=== PATIENT | male | born 1950 | race American Indian/Alaskan Native ===

== ENCOUNTER 2017-11-14 08:54 | Emergency (ER) | payer MEDICARE ==
--- NOTE | 2017-11-14 10:17 | XRay Report ---
RIGHT ELBOW, 3 views: HISTORY: right elbow pain. Normal bone mineralization. No evidence for acute fracture or bone lesion. Mild osteoarthritic changes are identified. There is moderate to severe posterior soft tissue swelling. A moderate to large olecranon spur is also identified. IMPRESSION: Posterior soft tissue swelling. Consider olecranon bursitis. Mild degenerative changes. Olecranon spur.
[2017-11-14 11:18] LABS: Basophils # (Auto) 0.1 K/mm3 (0.0-0.1); Basophils % (Auto) 1.1 % (0.0-1.8); Eosinophils # (Auto) 0.2 K/mm3 (0.0-0.4); Eosinophils % (Auto) 2.2 % (0.0-4.3); Hematocrit 42.3 % (35.5-45.6); Hemoglobin 13.8 gm/dl (11.8-15.2); Lymphocytes # (Auto) 2.2 K/mm3 (1.2-5.4); Lymphocytes % (Auto) 29.1 % (13.4-35.0); Mean Corpuscular HGB Conc 33 % (32-34); Mean Corpuscular Hemoglobin 29 pg (28-32); Mean Corpuscular Volume 90 fl (84-94); Monocytes # (Auto) 0.8 K/mm3 (0.0-0.8); Monocytes % (Auto) 9.9 % (0.0-7.3); Platelet Count 224 K/mm3 (140-440); Red Blood Count 4.71 M/mm3 (3.65-5.03); Red Cell Distribution Width 13.8 % (13.2-15.2)
[2017-11-14] MEDS ORDERED: TORADOL IM ONE (11:20)
--- NOTE | 2017-11-14 11:23 | Emergency Department Report ---
HPI - General Chief Complaint: Extremity Injury, Upper Time Seen by Provider: 11/14/17 10:34 - HPI HPI: Room 19 The patient is a 67-year-old male presenting with a chief complaint right elbow swelling. The patient states for the past 2 weeks she's had pain and swelling of the right elbow. Patient denies trauma or fever. The patient states she's had a history of the same elbow swelling intermittently over the past year. The patient states swelling usually resolves on its own at this time and has persisted. The patient gets his pain score of 11/10 Location: Right elbow Duration: 2 weeks Quality: Pain Severity: 11/10 Modifying factors: [see above] Context: [see above] Mode of transportation: The patient drove himself to the emergency department and there are no visitors present ED Past Medical Hx - Past Medical History Previous Medical History?: Yes Hx Hypertension: Yes (no meds) Hx Diabetes: Yes Additional medical history: Kurt shoulder pain, Kurt knee pain, gout - Surgical History Past Surgical History?: No - Family History Family history: no significant - Social History Smoking Status: Current Every Day Smoker (1/2 pack per day) Substance Use Type: None (denies illicit drug use), Alcohol (occasional), Non Opiate Pain, Other - Medications Home Medications: Home Medications Medication Instructions Recorded Confirmed Last Taken Type HYDROcodone/APAP 5-325 [Hecker 1 - 2 each PO Q6HR PRN #14 tablet 11/14/17 Unknown Rx 5/325] Ibuprofen [Motrin 800 MG tab] 800 mg PO Q8HR PRN #20 tablet 11/14/17 Unknown Rx ED Review of Systems ROS: Stated complaint: RT SWOLLEN ELBOW Other details as noted in HPI Constitutional: denies: fever Eyes: denies: eye pain ENT: denies: throat pain Cardiovascular: denies: chest pain Gastrointestinal: denies: abdominal pain Genitourinary: denies: dysuria Musculoskeletal: joint swelling, arthralgia Skin: denies: rash Neurological: denies: headache Physical Exam - Physical Exam Vital Signs: Vital Signs 11/14/17 09:19 Temperature 98.7 F Pulse Rate 81 Respiratory 20 Rate Blood Pressure 123/90 O2 Sat by Pulse 99 Oximetry Physical Exam: GENERAL: The patient is well-developed well-nourished male lying on stretcher not appearing to be in acute distress. [] HEENT: Normocephalic. Atraumatic. Extraocular motions are intact. Patient has moist mucous membranes. NECK: Trachea midline CHEST/LUNGS: There is no respiratory distress noted. HEART/CARDIOVASCULAR: Regular. There is no tachycardia. Normal capillary refill fingers of the right hand SKIN: There is no rash. There is an approximately golf ball size swelling overlying the right olecranon. There is only tenderness to the lateral aspect of the swelling. There is no overlying cellulitis. There is no diaphoresis. NEURO: The patient is awake, alert, and oriented. The patient is cooperative. The patient has normal speech MUSCULOSKELETAL: There is no evidence of acute injury. Patient complains of some pain with extension of the right upper extremity. ED Course Vital Signs 11/14/17 09:19 Temperature 98.7 F Pulse Rate 81 Respiratory 20 Rate Blood Pressure 123/90 O2 Sat by Pulse 99 Oximetry - Bursa Procedures Consent Obtained: verbal consent Indications: R/O septic bursitis, R/O gouty bursitis Side of Body: right Site of Procedure: olecranon bursa Antisepsis Used: Povidone-Iodine1% Local Anesthetic Used: Lidocaine 1%, with Epi [place] of Anesthesia Used (mls): 3 Fluid Type: clear, bloody Patient Tolerated Procedure: well Complications: none Additional Comments: Immediately after procedure and Band-Aid was placed in the right elbow was wrapped with an Geo wrap ED Medical Decision Making - Lab Data Result diagrams: 11/14/17 10:58 11/14/17 10:58 Laboratory Tests 11/14/17 11/14/17 11/14/17 10:58 10:58 11:11 WBC 7.6 RBC 4.71 Hgb 13.8 Hct 42.3 MCV 90 MCH 29 MCHC 33 RDW 13.8 Plt Count 224 Lymph % (Auto) 29.1 [place] % (Auto) 9.9 H Eos % (Auto) 2.2 Baso % (Auto) 1.1 Lymph # 2.2 [place] # 0.8 Eos # 0.2 Baso # 0.1 Seg Neutrophils % 57.7 Seg Neutrophils # 4.4 Sodium 138 Potassium 3.8 Chloride 101.1 Carbon Dioxide 28 Anion Gap 13 BUN 9 Creatinine 0.8 Estimated GFR > 60 BUN/Creatinine Ratio 11 Glucose 130 H Calcium 9.3 Fluid Type Synovial Fluid Color [place] Fluid Appearance Hazy Fluid WBC 300 Fluid RBC 5650 Synovial Crystals Msu crystals - Radiology Data Radiology results: report reviewed (right elbow x-ray), image reviewed (right elbow x-ray) interpreted by me: Right elbow x-ray-no foreign bodies. [facility] [address] [place] [address] XRay Report Signed Patient: DENNY MENDOZA MR#: [id number] : 1950 Acct:[id number] Age/Sex: 67 / M ADM Date: 11/14/17 Loc: ED Attending Dr: Ordering Physician: ED MD FARAZ Date of Service: 11/14/17 Procedure(s): XR elbow 3+V RT Accession Number(s): [id number] cc: ED MD FARAZ Fluoro Time In Minutes: RIGHT ELBOW, 3 views: HISTORY: right elbow pain. Normal bone mineralization. No evidence for acute fracture or bone lesion. Mild osteoarthritic changes are identified. There is moderate to severe posterior soft tissue swelling. A moderate to large olecranon spur is also identified. IMPRESSION: Posterior soft tissue swelling. Consider olecranon bursitis. Mild degenerative changes. Olecranon spur. Transcribed By: TTR Dictated By: FLORIN DUDLEY JR, MD Electronically Authenticated By: FLORIN DUDLEY JR, MD Signed Date/Time: 11/14/17 1003 DD/ 1002 TD/TT: 11/14/17 1003 - Differential Diagnosis gouty arthritis, olecranon bursitis, septic arthritis, septic bursitis Critical care attestation.: If time is entered above; I have spent that time in minutes in the direct care of this critically ill patient, excluding procedure time. ED Disposition Clinical Impression: Olecranon bursitis Disposition: Z-07 ELOPED Is pt being admited?: No Does the pt Need Aspirin: No Condition: Stable Instructions: Acute Gouty Arthritis (ED), Elbow Bursitis (ED) Additional Instructions: Return to the emergency department immediately should you develop worsening symptoms, fever, inability to tolerate food or liquid or any other concerns. Prescriptions: HYDROcodone/APAP 5-325 [Hecker 5/325] 1 - 2 each PO Q6HR PRN #14 tablet PRN Reason: Pain Ibuprofen [Motrin 800 MG tab] 800 mg PO Q8HR PRN #20 tablet PRN Reason: Pain, Moderate (4-6) Referrals: JOAQUIN AMADOR MD [Primary Care Provider] - 3-5 Days IRIS GOODE MD [Staff Physician] - 3-5 Days (Dr. Goode is an orthopedic surgeon. Please follow up with him for further evaluation) Time of Disposition: 12:46 (patient eloped prior to receiving discharge paperwork and prescriptions. They were given to nursing (Liang) in case patient returns)
[2017-11-14] MEDS ORDERED: TORADOL ONE (11:33)
[2017-11-14 11:41] LABS: BUN/Creatinine Ratio 11; Blood Urea Nitrogen 9 mg/dL (9-20); Calcium 9.3 mg/dL (8.4-10.2); Hemolysis Index 4
[2017-11-14 12:52] VITALS: BP 156/100
[2017-11-14 13:56] LABS: Total Cells Counted 100 /mm3
== END 2017-11-14 12:35 | disposition left against medical advice (07) ==
LOC: ED 08:54
DX: M70.21 Olecranon bursitis, right elbow (principal); Y93.89 Activity, other specified; I10 Essential (primary) hypertension; E11.9 Type 2 diabetes mellitus without complications; M10.9 Gout, unspecified; F17.200 Nicotine dependence, unspecified, uncomplicated
CPT/HCPCS: 36415; 73080; 80048; 85025; 85048; 89051; 96372; 99284; J1885